=== PATIENT | female | born 1965 | race Caucasian/White ===

== ENCOUNTER 2021-03-27 12:13 | Outpatient (CLI) | payer BC, MEDICAID, SELFPAY ==
--- NOTE | 2021-03-27 12:20 | XR_ITS ---
WS: [id number] Exam: XR wrist LT min 3V* [id number] Date/Time of Exam: 03/27/2021 12:22 PM Reason For Exam: L WRIST PAIN There are no fractures, soft tissue swelling, or unusual calcifications. The wrist shows normal bony alignment. There is no irregularity of the bony architecture. XR/XR wrist LT min 3V* [id number] IMPRESSION: Negative left wrist.
== END 2021-03-27 12:14 | disposition home or self-care (01) ==
PROVIDERS: PCP Nurse Practitioner Family; Visit Provider Nurse Practitioner Family
DX: M25.532 Pain in left wrist (principal)
CPT/HCPCS: 73110

== ENCOUNTER 2021-04-18 13:21 | Outpatient (CLI) | payer BC, MEDICAID, SELFPAY ==
--- NOTE | 2021-04-18 13:31 | MM_ITS ---
WS: [id number] BILATERAL DIGITAL SCREENING MAMMOGRAPHY WITH CAD CLINICAL INFORMATION: SCREENING HISTORY: Screening mammogram. No current complaints. COMPARISON: TECHNIQUE: Bilateral CC and MLO views. FINDINGS: Scattered fibroglandular densities bilaterally. Punctate and lucent centered calcifications. No suspi cious focal mass, asymmetry, calcifications, or architectural distortion. No evidence of malignancy. MM/[place] [id number] IMPRESSION: BI-RADS: 2-Benign FOLLOW UP: 1 Year Follow-up Recommend return to annual screening mammography.
== END 2021-04-18 13:22 | disposition home or self-care (01) ==
LOC: RADSHAW 13:25
PROVIDERS: PCP Nurse Practitioner Family; Visit Provider Nurse Practitioner Family
DX: Z12.31 Encounter for screening mammogram for malignant neoplasm of breast (principal)
CPT/HCPCS: 77067

== ENCOUNTER → 2021-04-24 11:03 | Outpatient (BNVA) | payer BC, MEDICAID, SELFPAY | PROVIDERS: PCP Nurse Practitioner Family; Visit Provider Podiatrist Foot & Ankle Surgery | DX: Z01.812 Encounter for preprocedural laboratory examination (principal); Z20.822 Contact with and (suspected) exposure to COVID-19 | CPT/HCPCS: 87635 ==

== ENCOUNTER 2021-04-28 08:25 | Day surgery (SDC) | payer BC, MEDICAID, SELFPAY ==
[2021-04-26 13:33] VITALS: BMI 29.7
[2021-04-28] VITALS (9 sets, daily range): BP systolic 111–155; BP diastolic 73–97; PULSE 79–93; RESP 12–18; TEMP 36.2–37.1; O2SAT 96–99
[2021-04-28] MEDS: sodium chloride 0.9% 1,000 ML 30 ML IV (08:59)
--- NOTE | 2021-04-28 09:29 | ANES.PREANE2 ---
Pre-Anesthetic Assessment Pre-Anesthetic Assessment: Height/Weight: Height 1.68 m Weight 83.461 kg Temp Pulse Resp BP Pulse Ox 98.8 F 79 18 143/88 96 04/28/21 08:48 04/28/21 08:48 04/28/21 08:48 04/28/21 08:48 04/28/21 08:48 Preop Diagnosis: Left plantar fibromatosis Proposed Procedure: Operation Date: 04/28/21 10:00 Proposed Procedures p left plantar fasciectomy 65393/m72.2(Left) - Allen Madrid, DPM Was Beta Darlin taken within 24 hours: N/A Was Clonidine taken within 24 hours: N/A Last intake: Intake Last Liquid Date 04/27/21 Last Liquid Time 20:00 Last Solid Date 04/27/21 Last Solid Time 20:00 Social: Social History: Tobacco and No alcohol Exam: Pre-Anes Outpt Exam: alert, oriented x 3 and regular rate & rhythm Airway: Submandibular: WNL Cervical ROM: WNL MP: 2 Dentition: False (uppers) Additional comments: Poor dentition Pulmonary: Pulmonary: COPD Anesthetic Plan: ASA status: 2 Anesthesia: Choice Risk of > 500 ml blood loss (7ml/kg in children): No Medications/Allergies Current Medications: Current Medications Generic Name Dose Route Start Last Admin Trade Name Freq PRN Reason Stop Dose Admin Sodium Chloride 1,000 mls @ 30 ml s/hr 04/28/21 08:45 04/28/21 08:59 Sodium Chloride 0.9% IV 04/29/21 08:44 30 mls/hr .Q24H WENCESLAO Administration PFSH Anesthesia PFSH: Social History (Updated 04/13/21 @ 13:40 by Marlin Momin MA) Smoking and tobacco status: current every day smoker cigarettes Packs smoked per day: 1 Second hand smoke exposure: Yes Smoking risk assessment/counseling performed?: No Alcohol intake: never Desire information about alcohol rehabilitation?: No Counseling given: No Desire information about substance/drug rehabilitation?: No Counseling given: No Data Anesthesia Cardiac Studies: No Data to Display
--- NOTE | 2021-04-28 10:00 | P.HPUD_ITS ---
Surgery/Procedure H&P Update DATE OF PROCEDURE: April 28, 2021 DATE H&P PERFORMED: 04/13/21 H&P UPDATE INFORMATION: I have reviewed H&P completed within last 30 days, I have examined patient prior to procedure, No changes to prior documentation and H&P is in [facility] EMR on date indicated PREOP DIAGNOSIS: Left plantar fibromatosis PLANNED PROCEDURE: Operation Date: 04/28/21 10:00 Proposed Procedures p left plantar fasciectomy 10792/m72.2(Left) - Allen Madrid DPM
[2021-04-28] MEDS: lidocaine 1% INJ 20 mL 15 ML INJECTION (10:45)
--- NOTE | 2021-04-28 10:59 | P.OP_ITS ---
Operative Report Date of procedure: April 28, 2021 Pre-op Diagnosis: Left plantar fibromatosis Post-op diagnosis: same Post-op Findings: Plantar fibroma left foot Procedure Done: Plantar fasciectomy left foot CPT code 06915 Implants: 3-0 Prolene Specimens removed/disposition: Plantar fibroma left foot sent to pathology Surgeon: Allen Madrid D.P.M. Acetylene Torch Burner: Bruce Anesthesia: MAC Estimated blood loss: 5 Tourniquet time: 10 IV fluids: 0 Urine output: 0 Complications: none Findings: Fibroma left plantar fascia medial band Condition: stable Disposition: PACU Brief History: For furtherPatient has had a recurrence of a painful fibroma of the left plantar forefoot wants it to be removed again. Risks include pain, bleeding, numbness, infection, recurrence of soft tissue mass, surgical site dehiscence, painful scar, altered mechanics surgical intervention. This affects her everyday quality of life and has tried different shoes, stretching and orthotics without relief would like to continue with surgical excision. Procedure: Under mild sedation the patient was brought to the operating room and remained on the gurney in supine position. A timeout was performed. Anesthesia was then administered by the anesthesia service. Local anesthesia injected by myself consisting of 30 cc of one-to-one mixture 0.5% Marcaine and 1% lidocaine plain. Well-padded pneumatic tourniquet applied to the left ankle. Left lower extremity was then scrubbed, prepped and draped utilizing normal aseptic technique. Left foot was exanguinated with an Esmarch bandage and the tourniquet inflated to 250 mmHg. Attention was directed to the plantar aspect of the left forefoot near the medial band of the plantar fascia at the instep where previous curvilinear incision was visualized directly over the previous cicatrix a incision was made through skin with a #15 blade with dissection carried down through subcutaneous tissue utilizing blunt and sharp technique. Care was taken to retract and preserve neurovascular and tendinous structures. All bleeders were ligated and cauterized as necessary. Fibrous tissue within the medial band of the plantar fascia with thickening consistent with fibroma was excised with the accompanying and adjacent incorporated plantar fascia this was passed in operative field and sent to pathology for review. Incision was flushed with saline solution and closed with 3-0 Prolene dressed with Adaptic, sterile 4 x 4, Kerlix and Mike wrap and a cam boot was applied. Tourniquet was deflated and a prompt hyperemic response was noted to the distal digits of the left foot. Patient tolerated the procedure and anesthesia well and was transferred to the PACU with vital signs stable and vascular status intact. Following a period of postoperative monitoring she will be discharged home with a cam boot and order for crutches. Patient will require an order for crutches she is to be strict nonweightbearing to the left foot at this time will require crutches to accomplish this. Crutches will be needed for the next 6 weeks potentially longer pending her healing.
[2021-04-28] MEDS: oxyCODONE-APAP 10-325 mg Tablet 1 TAB PO (11:26)
--- NOTE | 2021-04-28 14:34 | ANE.PACU2 ---
Inpatient post-anesthesia follow up: Airway intact: Yes Vital signs: Temperature 97.6 F Pulse Rate 87 Respiratory Rate 18 Blood Pressure 146/96 Pulse Oximetry 97 Oxygen Delivery Me thod Room Air Oxygen Flow Rate 6 Fraction of Inspir ed Oxygen Hydration adequate: Yes Nausea and vomiting: No Pain level: 1 Mental status: Baseline
== END 2021-04-28 11:45 | disposition home or self-care (01) ==
PROVIDERS: PCP Nurse Practitioner Family; Visit Provider Podiatrist Foot & Ankle Surgery
PROC: (CPT 28008; principal; 2021-04-28 10:00)
DX: M72.2 Plantar fascial fibromatosis (principal); J44.9 Chronic obstructive pulmonary disease, unspecified; F17.210 Nicotine dependence, cigarettes, uncomplicated
CPT/HCPCS: 28060; 88307; 88342; 96365; J0690; J2704; J3010; J3490; J7030

== ENCOUNTER → 2021-05-22 10:50 | Outpatient (BNVA) | payer BC, MEDICAID, SELFPAY | PROVIDERS: PCP Nurse Practitioner Family; Referring Provider Nurse Practitioner Family; Visit Provider Specialist | DX: G56.22 Lesion of ulnar nerve, left upper limb (principal); F17.210 Nicotine dependence, cigarettes, uncomplicated | CPT/HCPCS: 95908 ==

== ENCOUNTER → 2021-06-09 10:48 | Outpatient (BNVA) | payer BC, MEDICAID, SELFPAY | PROVIDERS: PCP Nurse Practitioner Family; Visit Provider Surgery | DX: Z20.822 Contact with and (suspected) exposure to COVID-19 (principal) | CPT/HCPCS: 87635 ==

== ENCOUNTER 2021-06-14 06:00 | Day surgery (SDC) | payer BC, MEDICAID, SELFPAY ==
[2021-06-09 10:49] VITALS: BMI 29.9
[2021-06-14 06:18] VITALS: BP 122/96; PULSE 106; RESP 18; TEMP 36.4; O2SAT 98
[2021-06-14] MEDS: sodium chloride 0.9% 1,000 ML 30 ML IV (06:27)
--- NOTE | 2021-06-14 06:52 | ANES.PREANE2 ---
Pre-Anesthetic Assessment Height/Weight: Height 1.68 m Weight 84.368 kg Temp Pulse Resp BP Pulse Ox 97.5 F L 106 H 18 122/96 98 06/14/21 06:18 06/14/21 06:18 06/14/21 06:18 06/14/21 06:18 06/14/21 06:18 Preop Diagnosis: diagnostic Operation Date: 06/14/21 07:00 Proposed Procedures p Colonoscopy 47537/z80.0(Not Applicable) - Denton Mcpherson MD Familial anesthetic complications: none Was Beta Darlin taken within 24 hours: N/A Was Clonidine taken within 24 hours: N/A Last intake: Intake Last Liquid Date 06/13/21 Last Liquid Time 21:00 Last Solid Date 06/12/21 Last Solid Time 20:00 Social Tobacco and No alcohol 1 pack(s) per day Exam alert, oriented x 3, clear to auscultation bilaterally and regular rate & rhythm Airway Submandibular: within normal limits Cervical ROM: within normal limits Mallampati: Class II Comments: Comments: missing Pulmonary None reported CV/HEM None reported None reported Hepatic None reported GI None reported Metabolic None reported Musc/skel None reported Neuropsych None reported Anesthetic Plan ASA status: 1 Anesthesia: MAC Risk of > 500 ml blood loss (7ml/kg in children): No Medications/Allergies Home Medications Medication Instructions Recorded Confirmed Last Taken Type venlafaxine 150 mg 150 mg PO DAILY 04/26/21 06/14/21 06/13/21 History capsule,extended release 24 hr Allergies Allergy/AdvReac Type Severity Reaction Status Date / Time No Known Allergies Allergy Verified 06/14/21 06:15 Current Medications Generic Name Dose Route Start Last Admin Trade Name Freq PRN Reason Stop Dose Admin Sodium Chloride 1,000 mls @ 30 mls/hr 06/14/21 06:15 06/14/21 06:27 Sodium Chloride 0.9% IV 06/15/21 06:14 30 mls/hr .Q24H WENCESLAO Administration PFSH Anesthesia Surgical History H/O: hysterectomy History of colonoscopy Status post left foot surgery excision fibroma Social History Smoking and tobacco status: current every day smoker cigarettes Packs smoked per day: 1 Second hand smoke exposure: Yes Smoking risk assessment/counseling performed?: No Alcohol intake: never Desire information about alcohol rehabilitation?: No Counseling given: No Desire information about substance/drug rehabilitation?: No Counseling given: No Data Anesthesia Cardiac Studies: No Data to Display
--- NOTE | 2021-06-14 06:53 | P.HP_ITS ---
Same Day Surgery H&P Indication for Procedure/HPI DATE OF PROCEDURE: June 14, 2021 CHIEF COMPLAINT/INDICATIONFOR SURGICAL PROCEDURE: colonoscopy PREOP DIAGNOSIS: diagnostic PLANNED PROCEDURE: Operation Date: 06/14/21 07:00 Proposed Procedures p Colonoscopy 86633/z80.0(Not Applicable) - Denton Mcpherson MD Medications/Allergies* Home Medications Medication Instructions Recorded Confirmed Type venlafaxine 150 mg 150 mg PO DAILY 04/26/21 06/14/21 History capsule,extended release 24 hr Allergies/Adverse Reactions Allergy/AdvReac Type Severity Reaction Status Date / Time No Known Allergies Allergy Verified 06/14/21 06:15 Current Medications: Generic Name Dose Route Start Last Admin Trade Name Freq PRN Reason Stop Dose Admin Sodium Chloride 1,000 mls @ 30 mls/hr 06/14/21 06:15 06/14/21 06:27 Sodium Chloride 0.9% IV 06/15/21 06:14 30 mls/hr .Q24H WENCESLAO Administration Pertinent History/Comorbid Conditions* Surgical History (Updated 05/10/21 @ 09:32 by Allen Madrid DPM) H/O: hysterectomy History of colonoscopy Status post left foot surgery excision fibroma Social History Smoking and tobacco status: current every day smoker cigarettes Packs smoked per day: 1 Second hand smoke exposure: Yes Smoking risk assessment/counseling performed?: No Alcohol intake: never Desire information about alcohol rehabilitation?: No Counseling given: No Desire information about substance/drug rehabilitation?: No Counseling given: No Pertinent Exam Findings alert, oriented x 3 and regular rate & rhythm Recommendations Surgery/Procedure today Coding Level of Care Code Acute Batch Mixing Truck Driver for Courtney Randall
[2021-06-14 07:37] VITALS: BP 121/85; PULSE 83; RESP 12; TEMP 36.1; O2SAT 94
--- NOTE | 2021-06-14 07:37 | ANE.PACU2 ---
Inpatient post-anesthesia follow up: Airway intact: Yes Vital signs: Temperature 97.5 F Pulse Rate 106 Respiratory Rate 18 Blood Pressure 122/96 Pulse Oximetry 98 Oxygen Delivery Me thod Room Air Oxygen Flow Rate Fraction of Inspir ed Oxygen Hydration adequate: Yes Nausea and vomiting: No Pain level: 1 Mental status: Baseline
[2021-06-14 07:42] VITALS: BP 116/85; PULSE 77; RESP 16; O2SAT 97
[2021-06-14 07:50] VITALS: BP 121/80; PULSE 83; RESP 16; TEMP 36.1; O2SAT 96
== END 2021-06-14 08:04 | disposition home or self-care (01) ==
PROVIDERS: PCP Nurse Practitioner Family; Visit Provider Surgery
PROC: 0DJD8ZZ Inspection of Lower Intestinal Tract, Via Natural or Artificial Opening Endoscopic (ICD-10-PCS; CPT 45378; principal; 2021-06-14 07:00)
DX: Z12.11 Encounter for screening for malignant neoplasm of colon (principal); Z80.0 Family history of malignant neoplasm of digestive organs; F17.210 Nicotine dependence, cigarettes, uncomplicated; D12.2 Benign neoplasm of ascending colon; D12.0 Benign neoplasm of cecum; D12.4 Benign neoplasm of descending colon; D12.5 Benign neoplasm of sigmoid colon; K57.30 Diverticulosis of large intestine without perforation or abscess without bleeding
CPT/HCPCS: 45380; 45385; 88305; J2704; J3490; J7030

== ENCOUNTER → 2021-09-21 13:08 | Outpatient (BNVA) | payer BC, MEDICAID, SELFPAY | PROVIDERS: PCP Nurse Practitioner Family; Visit Provider Podiatrist Foot & Ankle Surgery | DX: M79.672 Pain in left foot (principal); M21.41 Flat foot [pes planus] (acquired), right foot; M21.42 Flat foot [pes planus] (acquired), left foot; M72.2 Plantar fascial fibromatosis | CPT/HCPCS: 99213; 99214 ==

== ENCOUNTER 2021-09-29 09:35 | Day surgery (SDC) | payer BC, MEDICAID, SELFPAY ==
[2021-09-28 13:45] VITALS: BMI 29.9
[2021-09-29] VITALS (8 sets, daily range): BP systolic 100–148; BP diastolic 68–92; PULSE 73–85; RESP 12–18; TEMP 36.3–36.6; O2SAT 94–100
--- NOTE | 2021-09-29 10:01 | W.PM.OPSUD ---
Surgery/Procedure H&P Update DATE OF PROCEDURE: September 29, 2021 DATE H&P PERFORMED: 09/21/21 CHANGES TO PREVIOUS DOCUMENTATION: None PREOP DIAGNOSIS: Left plantar fascial fibromatosis PLANNED PROCEDURE: Operation Date: 09/29/21 11:15 Proposed Procedures p Left Plantar [id number],M72.2(Left) - Allen Madrid DPM
[2021-09-29] MEDS: gabapentin 300 mg Capsule PO (10:03)
[2021-09-29] MEDS: CELEcoxib 200 mg Capsule 400 MG PO (10:03)
[2021-09-29] MEDS: sodium chloride 0.9% 1,000 ML 30 ML IV (10:03)
--- NOTE | 2021-09-29 10:13 | P.ANESASSM_ITS ---
Pre-Anesthetic Assessment Height/Weight: Height 1.68 m Weight 84.368 kg Temp Pulse Resp BP Pulse Ox 97.5 F L 85 18 147/92 95 09/29/21 09:52 09/29/21 09:52 09/29/21 09:52 09/29/21 09:52 09/29/21 09:52 Preop Diagnosis: Left plantar fascial fibromatosis Operation Date: 09/29/21 11:15 Proposed Procedures p Left Plantar [id number],M72.2(Left) - Allen Madrid DPM Familial anesthetic complications: none Was Beta Darlin taken within 24 hours: N/A Was Clonidine taken within 24 hours: N/A Last intake: Intake Last Liquid Date 09/28/21 Last Liquid Time 21:00 Last Solid Date 09/28/21 Last Solid Time 15:00 Social Tobacco and No alcohol Exam alert, oriented x 3, clear to auscultation bilaterally and regular rate & rhythm Airway Submandibular: within normal limits Cervical ROM: within normal limits Mallampati: Class I Comments: Comments: Missing most teeth Pulmonary None reported CV/HEM None reported METS > 4 None reported Hepatic None reported GI None reported Metabolic None reported Musc/skel plantar fasciitis Neuropsych Neuropathy (ulnar ) Anesthetic Plan ASA status: 3 Anesthesia: Anesthesia Evaluation, General and MAC Other: We discussed risk and benefits of general anesthesia including PONV, sore throat (sometimes severe), corneal abrasion, positioning and peripheral nerve injuries, life threatening allergic reaction, post operative ICU admission requiring pro longed intubation, aspiration, stroke, heart attack, , and rare incidences of recall. I discussed with the patient risks, goals, and benefits of MAC and general anesthesia. We discussed spectrum of MAC anesthesia including conversion to general as well as possibility of recall of intraoperative stimuli including discomfort/pain. Patient consents to MAC or General pending further discussion with surgeon. Risk of > 500 ml blood loss (7ml/kg in children): No Medications/Allergies Home Medications Medication Instructions Recorded Confirmed Last Taken Type venlafaxine 150 mg 150 mg PO DAILY 04/26/21 09/29/21 09/28/21 History capsule,extended release 24 hr oxycodone-acetaminophen 10 mg-325 1 tab PO Q6H PRN 7 Days #28 tab 09/29/21 Unknown Rx mg tablet (Percocet) Allergies Allergy/AdvReac Type Severity Reaction Status Date / Time No Known Allergies Allergy Verified 09/29/21 09:51 Current Medications Generic Name Dose Route Start Last Admin Trade Name Freq PRN Reason Stop Dose Admin Sodium Chloride 1,000 mls @ 30 mls/hr 09/29/21 09:45 09/29/21 10:03 Sodium Chloride 0.9% IV 09/30/21 09:44 30 mls/hr .Q24H WENCESLAO Administration PFSH Anesthesia Medical History Colon polyps Surgical History H/O: hysterectomy History of colonoscopy Status post colonoscopy with polypectomy (06/14/21) Cecal, ascending, descending, sigmoid polyp, sigmoid diverticulosis Status post left foot surgery excision fibroma Social History Smoking and tobacco status: current every day smoker cigarettes Packs smoked per day: 1 Second hand smoke exposure: Yes Smoking risk assessment/counseling performed?: No Alcohol intake: never Desire information about alcohol rehabilitation?: No Counseling given: No Desire information about substance/drug rehabilitation?: No Counseling given: No Data Anesthesia Cardiac Studies: No Data to Display
--- NOTE | 2021-09-29 10:49 | PM.OP ---
Operative Report Date of procedure: September 29, 2021 Pre-op diagnosis: Left plantar fascial fibromatosis Post-op diagnosis: Same Procedure done: Left plantar fasciectomy CPT code 26608 Implants: 3-0 Prolene Pathology: Plantar fibromatosis 3.7 cm x 1.8 cm sent to pathology Surgeon: Allen Madrid D.P.M. Detonator Maker: Abilio Estimated blood loss: 5 15 IV fluids: None Urine output: None Complications: 0 Findings: Plantar fibromatosis within the medial band of the plantar fascia Brief History: Patient states that she would like to have the nodule removed, had had it removed previously and has had reoccurrence.? I explained to her that there is a high recurrence rate of this.? To decrease recurrence rate would perform more aggressive fasciectomy.? Patient is agreeable.? Like to have this done on September 29, 2021 risks include pain, bleeding, numbness, infection, recurrence of soft tissue mass and need for further surgical intervention, painful scar, surgical site dehiscence, excessive scar and damage to adjacent soft tissue structures.? Also risk for collapse of the longitudinal arch as the plantar fascia is a support structure for this. Procedure: Under mild sedation the patient was brought to the operating room and remained on the gurney in supine position. A timeout was performed. Anesthesia was then administered by the anesthesia service. Local anesthesia injected by myself and a male block to the left foot utilizing 30 cc of one-to-one mixture 1% lidocaine and 0.25% Marcaine plain. Well-padded pneumatic tourniquet applied to the left ankle. The left lower extremity was then scrubbed, prepped and draped utilizing normal aseptic technique. Left foot was exanguinated with an Esmarch bandage and the tourniquet inflated to 250 mmHg. Attention was directed to the left plantar foot where within the medial band of the plantar fascia a palpable nodule was appreciated distal to the instep. A curvilinear incision was performed over the previous well-healed cicatrix with a #15 blade through skin with dissection carried down through subcutaneous tissue immediately encountering the fibromatosis that was well incorporated within the medial band of the plantar fascia a plantar fasciectomy with the fibromatosis was excised and passed from the operative field the specimen measured 3.7 cm x 1.8 cm sent to pathology. Clean margins were appreciated intraoperatively having removed an aggressive portion of the medial band and portion of the central band of the plantar fascia. No remaining inflammatory or fibrotic tissue appreciated. Incision was flushed with saline solution. 1 cc of Decadron was injected. Closure in a single layer fashion utilizing 3-0 Prolene in simple interrupted sutures. Incision was dressed with Adaptic, sterile 4 x 4, Kerlix and Mike wrap followed by postop shoe. Tourniquet was deflated and a prompt hyperemic response is noted to the distal digits of the left foot. Patient tolerated the procedure and anesthesia well and was transferred to the PACU with vital signs stable and vascular status intact. Following a period of postop monitoring she will be discharged home may be limited protected weightbearing with a postop shoe or cam boot. Follow-up Saturday next week for first dressing change.
[2021-09-29] MEDS: lidocaine 2% INJ 20 mL 10 ML INJECTION (11:11)
[2021-09-29] MEDS: dexamethasone 4 mg/mL INJ INJECTION (11:15)
[2021-09-29] MEDS: oxyCODONE-APAP 10-325 mg Tablet 1 TAB PO (11:47)
--- NOTE | 2021-09-29 12:03 | ANE.PACU2 ---
Inpatient post-anesthesia follow up: Airway intact: Yes Vital signs: Temperature 97.4 F Pulse Rate 73 Respiratory Rate 16 Blood Pressure 148/90 Pulse Oximetry 96 Oxygen Delivery Me thod Room Air Oxygen Flow Rate 10 Fraction of Inspir ed Oxygen Hydration adequate: Yes Nausea and vomiting: No Pain level: 1 Mental status: Baseline
== END 2021-09-29 12:04 | disposition home or self-care (01) ==
PROVIDERS: PCP Nurse Practitioner Family; Visit Provider Podiatrist Foot & Ankle Surgery
PROC: (CPT 28060; principal; 2021-09-29 11:05)
DX: M72.2 Plantar fascial fibromatosis (principal)
CPT/HCPCS: 28060; 88307; J1100; J2250; J2704; J3010; J3490; J7030

== ENCOUNTER → 2021-10-19 14:57 | Outpatient (BNVA) | payer BC, MEDICAID, SELFPAY | PROVIDERS: PCP Nurse Practitioner Family; Visit Provider Podiatrist Foot & Ankle Surgery | DX: Z98.890 Other specified postprocedural states (principal); M79.672 Pain in left foot; M21.42 Flat foot [pes planus] (acquired), left foot; M72.2 Plantar fascial fibromatosis | CPT/HCPCS: 99024 ==

== ENCOUNTER → 2021-11-08 14:09 | Outpatient (BNVA) | payer BC, MEDICAID, SELFPAY | PROVIDERS: PCP Nurse Practitioner Family; Visit Provider Podiatrist Foot & Ankle Surgery | DX: Z98.890 Other specified postprocedural states (principal); M21.42 Flat foot [pes planus] (acquired), left foot; M72.2 Plantar fascial fibromatosis | CPT/HCPCS: 99024 ==

== ENCOUNTER 2022-07-19 06:54 | Outpatient (CLI) | payer BC, MEDICAID, SELFPAY ==
--- NOTE | 2022-07-19 | CT_ITS ---
WS: [id number] LDCT LUNG CANCER SCREENING HISTORY: NICOTINE DEPENDENCE TECHNIQUE: Axial imaging performed from the apices to 1 cm below the costophrenic angles. Coronal and sagittal reformats are submitted with axial MIP series. All CT scans at [facility] use at least one of these dose optimization techniques: automated exposure control; mA and/or kV adjustment per patient size (includes targeted exams where dose is matched to clinical indication); or iterativ e reconstruction. DLP: 79.71 mGy.cm DIvol: Mean CTDIvol: 1.70 (mGy) COMPARISON: None available. Diagnostic quality: Satisfactory Lungs: Chronic emphysema. There are 2 adjacent well-circumscribed noncalcified nodules at the RIGHT l perri base. Largest nodule is 6 mm. No additional mass or nodule. Thin septation is probably mucous in the LEFT mainstem bronchus. Heart: Normal size heart with no pericardial effusion.. Other findings: Very mild atherosclerosis aorta. No mediastinal or hilar adenopathy. CT/CT lung screening [id number] IMPRESSION: LUNG-RADS: 3-Probably Benign FOLLOW UP: 6 Month LDCT OTHER FINDINGS (S MODIFIER): None.
== END 2022-07-19 06:55 | disposition home or self-care (01) ==
LOC: RAD 06:56
PROVIDERS: PCP Nurse Practitioner Family; Visit Provider Nurse Practitioner Family
DX: Z12.2 Encounter for screening for malignant neoplasm of respiratory organs (principal); F17.210 Nicotine dependence, cigarettes, uncomplicated
CPT/HCPCS: 71271

== ENCOUNTER 2022-12-17 20:00 | Outpatient (CLI) | payer BC, MEDICAID, SELFPAY | END 2022-12-17 20:01 | disposition home or self-care (01) | LOC: SLEEP 12-18 05:41 | PROVIDERS: PCP Nurse Practitioner Family; Visit Provider Family Medicine | DX: G47.10 Hypersomnia, unspecified (principal); J44.9 Chronic obstructive pulmonary disease, unspecified; R53.83 Other fatigue | CPT/HCPCS: 95810 ==

== ENCOUNTER 2023-04-12 08:33 | Outpatient (CLI) | payer BC, MEDICAID, SELFPAY ==
--- NOTE | 2023-04-12 08:39 | CT_ITS ---
WS: [id number] CT chest w con* [id number] HISTORY: LUNG NODULE/ABNORMAL CHEST CT TECHNIQUE: Axial imaging performed through the thorax. Coronal and sagittal reformats are submitted. All CT scans at [facility] use at least one of these dose optimization techniques: automated exposure control; mA and/or kV adjustment per patient size (includes targeted exams where dose is mat ched to clinical indication); or iterative reconstruction. CONTRAST: Omnipaque 350; 100 mL IV. DLP: 602.32 mGy.cm COMPARISON: 07/19/2022 Lungs and central airway: Reidentified is a 2 adjacent noncalcified and well-circumscribed nodules at the RIGHT lung base with the largest nodule measuring 5 mm. These nodules have not increased in size . Remaining lungs are clear. No pneumonia or mass. No groundglass attenuation. Pleura: Normal. No pleural effusion. Heart and pericardium: Normal size heart with no pericardial effusion. Mediastinum and amada: Mildly prominent lymphoid tissue at the hilar regions. 11 mm RIGHT hilar lymph node is the largest. No adenopathy. Vessels: Normal size aortic and pulmonary artery. No coronary artery calcifications. Chest wall and lower neck: No soft tissue masses. Upper abdomen: Mild hepatic steatosis. No adrenal mass. Osseous structures: No destructive process. IMPRESSION: 1. No interval change in the 2 adjacent RIGHT lower lobe noncalcified pulmonary nodules. The largest nodule is 5 mm. Stable since 07/19/2022. Recommend 12-month noncontrast chest CT follow-up. 2. Very minimally prominent lymphoid tissue at the hilar regions is probably reactive. 3. No pneumonia. 4. Hepatic steatosis.
[2023-04-12] MEDS: iohexol 350 mg/mL 500 mL Btl (per mL) IV (08:51)
== END 2023-04-12 08:34 | disposition home or self-care (01) ==
LOC: RAD 08:33
PROVIDERS: PCP Nurse Practitioner Family; Visit Provider Nurse Practitioner Family
DX: R91.8 Other nonspecific abnormal finding of lung field (principal)
CPT/HCPCS: 71260; Q9967

== ENCOUNTER 2024-01-15 12:55 | Outpatient (CLI) | payer OTHER, SELFPAY ==
[2024-01-15 13:12] VITALS: PULSE 95; RESP 18; O2SAT 99
[2024-01-15] MEDS: albuterol 2.5 mg/3 mL Neb INHALATION (13:12)
[2024-01-15 13:16] VITALS: PULSE 100
== END 2024-01-15 12:56 | disposition home or self-care (01) ==
LOC: RT 12:56
PROVIDERS: PCP Nurse Practitioner Family; Visit Provider Family Medicine
DX: J43.9 Emphysema, unspecified (principal); J84.10 Pulmonary fibrosis, unspecified; J44.9 Chronic obstructive pulmonary disease, unspecified; R06.09 Other forms of dyspnea; J98.4 Other disorders of lung; F17.218 Nicotine dependence, cigarettes, with other nicotine-induced disorders; F17.200 Nicotine dependence, unspecified, uncomplicated; K63.5 Polyp of colon
CPT/HCPCS: 94060; 94726; 94729; J7613

== ENCOUNTER 2024-01-15 13:52 | Outpatient (CLI) | payer OTHER, SELFPAY | END 2024-01-15 13:53 | disposition home or self-care (01) | LOC: SLEEP 13:53 | PROVIDERS: PCP Nurse Practitioner Family; Visit Provider Internal Medicine Critical Care Medicine | DX: J44.9 Chronic obstructive pulmonary disease, unspecified (principal); J98.4 Other disorders of lung; R06.09 Other forms of dyspnea; F17.200 Nicotine dependence, unspecified, uncomplicated | CPT/HCPCS: 94762 ==